=== PATIENT | female | born 1980 | race Caucasian/White ===

== ENCOUNTER → 2020-08-18 08:47 | Outpatient (BNVA) | payer OTHER, SELFPAY | PROVIDERS: PCP Internal Medicine Endocrinology, Diabetes & Metabolism; Referring Provider Internal Medicine Endocrinology, Diabetes & Metabolism; Visit Provider Student in an Organized Health Care Education/Training Program | DX: M25.50 Pain in unspecified joint (principal); R94.6 Abnormal results of thyroid function studies; E55.9 Vitamin D deficiency, unspecified | CPT/HCPCS: 99212 ==

== ENCOUNTER → 2021-07-28 11:07 | Outpatient (BNVA) | payer OTHER, SELFPAY | PROVIDERS: PCP Internal Medicine Endocrinology, Diabetes & Metabolism; Visit Provider Nurse Practitioner Family | DX: M25.50 Pain in unspecified joint (principal) | CPT/HCPCS: 99212 ==

== ENCOUNTER 2022-10-02 12:06 | Outpatient (REF) | payer OTHER, SELFPAY ==
[2022-10-02 14:28] LABS: MANUAL DIFF FLAG NO
[2022-10-02 14:34] LABS: Basophils Percent Auto 0.7 % (0-2); Eosinophils Percent Auto 0.9 % (0-4); Hematocrit 41.5 % (37.0-47.0); Hemoglobin 13.4 g/dl (12.0-16.0); Lymphocytes Percent Auto 42.8 % (20-40); Mean Corpuscular HGB Conc 32.3 g/dl (31.0-35.0); Mean Corpuscular Hemoglobin 28.9 pg (27.0-33.0); Mean Corpuscular Volume 89.4 fL (80.0-98.0); Mean Platelet Volume 10.5 fL (9.4-12.3); Monocytes Absolute Auto 0.2 X10*3/uL (0.1-1.2); Neutrophils Absolute Auto 2.3 x10*3/uL (2.0-8.3); Neutrophils Percent Auto 50.6 % (45-73); Platelet Count 251 X10*3/uL (160-400); Red Blood Count 4.64 X10*6/uL (4.20-5.50); Red Cell Distribution Width 12.9 % (11.0-16.0); White Blood Count 4.6 X10*3/uL (4.8-10.8)
[2022-10-02 14:52] LABS: Alanine Aminotransferase 16 U/L (0-31); Albumin Level 4.3 g/dL (3.5-5.0); Alkaline Phosphatase 65 U/L (39-117); Anion Gap 11 (12-20); Aspartate Amino Transferase 12 U/L (5-31); Bilirubin Total 0.5 mg/dL (0.0-1.0); Blood Urea Nitrogen 13 mg/dL (9-16); Calcium 9.4 mg/dL (8.4-10.2); Carbon Dioxide 24 mmol/L (22-29); Chloride 110 mmol/L (96-108); Estimated Glomerular Filt Rate > 60; Glucose Random 93 mg/dL (60-115); Potassium 4.5 mmol/L (3.3-5.1); Sodium 140 mmol/L (135-145); Total Protein 6.9 g/dL (6.5-8.0)
== END 2022-10-02 12:07 | disposition home or self-care (01) ==
LOC: HO.10HDL 12:06
PROVIDERS: Visit Provider Nurse Practitioner Family
DX: M79.7 Fibromyalgia (principal)
CPT/HCPCS: 36415; 80053; 85025; 99212

== ENCOUNTER 2024-01-01 10:34 | Outpatient (AMB) | payer OTHER, SELFPAY ==
--- NOTE | 2024-01-01 10:40 | MHC.OFFVIS ---
Intake Vital Signs 01/01/24 10:41 Height 5 ft 6 in Weight 202 lb 6.15 oz BMI 32.7 BP 116/68 Blood Pressure Location Rt brachial Position Sitting Pulse 61 Pulse Source Pulse Oximeter Pulse Oximetry (%) 97 Oxygen Delivery Method Room Air Intake Visit Reasons: Fibromyalgia Intake Note: Patient last seen by Sravani 10/02/22 presents today for follow up. C/o pain in multiple areas. Has been seen by ortho in [place] for shoulder pains and has done injections but states they don't work. She is on duloxetine 20mg prescribed by her PCP. Magnetic Observer Required: No Accompanied by: Self / Same As Patient Allergies No Known Allergies Allergy (Verified 01/01/24 10:43) Medication List - Last Reconciled 01/01/24 by Erika Holland MD cholecalciferol (vitamin D3) 25 mcg PO DAILY cyanocobalamin (vitamin B-12) (Vitamin B-12) 1,000 mcg PO DAILY diclofenac sodium 3% 1 appl topical BID duloxetine 20 mg PO DAILY levothyroxine 88 mcg PO DAILY omeprazole 40 mg PO DAILY HPI HPI Comments History of Present Illness Details 43-year-old female with fibromyalgia returns for follow-up. She was last seen by Rosa Schuler 09/2023 She states that she was started on Cymbalta about a year ago by her PCP. 20 mg daily. She does not believe it helps at all. She states that she develops frozen shoulder June of 2023. She does not recall any trauma or injury. She received a steroid injection, it was not helpful. She is now doing physical therapy for her left shoulder. She continues to have diffuse pain [facility] Medical History Obesity Depression Hypothyroid Surgical History Status post laparoscopic sleeve gastrectomy Family History Mother Hypertension Father Family history of arthritis Social History Alcohol intake: never Patient Tobacco Use Status: Never used Tobacco e-Cigarette/Vaping Use: Never Used Review of Systems Musc Reports myalgias, Reports arthralgias, Reports limited range of motion and Reports stiffness Physical Exam Vital Signs: Last Vital Signs Pulse 61 01/01/24 10:41 BP 116/68 01/01/24 10:41 Pulse Ox 97 01/01/24 10:41 Oxygen Delivery Method Room Air 01/01/24 10:41 BMI result Body Mass Index 32.7 Const General: cooperative, healthy appearing and comfortable Nutritional Appearance: obese Orientation/consciousness: patient oriented x3 Limitations: no limitations HEENT Head: Yes normocephalic and Yes atraumatic Mouth: moist mucous membranes Resp Effort & Inspection: normal respiratory effort and able to speak in complete sentences Auscultation: clear to auscultation bilaterally Cardio Rate: regular rate Skin General skin exam: no rashes or lesions noted Neuro General: patient oriented x3 Extrem Other: No active synovitis Normal nailfold capillaroscopy Significantly limited range of motion of left shoulder Fibromyalgia tender points Assessment & Plan Assessment & Plan (1) Fibromyalgia: Code(s): M79.7 - Fibromyalgia Plan: 43-year-old female with fibromyalgia returns for follow-up. I do not see any signs suggestive of an autoimmune rheumatic disease upon my evaluation. Discussed management of fibromyalgia with patient. Is a noninflammatory, non-autoimmune central afferent processing disorder leading to a diffuse pain syndrome. I suggested that patient try to address her underlying psychiatric issues, anxiety/depression. I suggested evaluation by a therapist and/or a psychiatrist. Try to follow sleep hygiene practices. Discuss a referral for a sleep study by her PCP to rule out NAKUL. Patient would benefit from increased physical activity, either through formal physical therapy or by joining a gym. Advised patient that she should start activity slowly and increase as tolerated. Consider low-impact exercises such as walking, swimming, aqua therapy stretching, yoga. Consider increasing duloxetine to 60 mg daily Follow-up with PCP (2) Frozen shoulder syndrome: Code(s): M75.00 - Adhesive capsulitis of unspecified shoulder Qualifiers: Laterality: left Qualified Code(s): M75.02 - Adhesive capsulitis of left shoulder Plan: Symptoms started 06/2023. She received a steroid injection, was not helpful. Advised patient to continue with PT. Follow-up with PCP Plan I spent 25 minutes reviewing patient's chart, evaluating patient, counseling patient and documenting in the chart Coding Level of Care Code Est Pt Level 4 (52120) Diagnoses Fibromyalgia M79.7 Adhesive capsulitis of left shoulder M75.02 Laterality: left
[2024-01-01 10:41] VITALS: BP 116/68; PULSE 61; O2SAT 97; BMI 32.7
== END 2024-01-01 11:10 | disposition home or self-care (01) ==
PROVIDERS: PCP Internal Medicine Endocrinology, Diabetes & Metabolism; Visit Provider Student in an Organized Health Care Education/Training Program
DX: M79.7 Fibromyalgia (principal); M75.02 Adhesive capsulitis of left shoulder
CPT/HCPCS: 99214

== ENCOUNTER → 2024-01-01 10:34 | Outpatient (BNVA) | payer OTHER, SELFPAY | PROVIDERS: PCP Internal Medicine Endocrinology, Diabetes & Metabolism; Visit Provider Student in an Organized Health Care Education/Training Program | DX: M79.7 Fibromyalgia (principal); M75.02 Adhesive capsulitis of left shoulder; Z79.899 Other long term (current) drug therapy | CPT/HCPCS: 99212 ==